=== PATIENT | female | born 1930 | race American Indian/Alaskan Native ===

== ENCOUNTER 2018-01-11 09:00 | Outpatient (CLI) | payer MEDICARE ==
--- NOTE | 2018-01-11 13:16 | Mammography Report ---
BONE DEXA:01/11/18 09:00:00 CLINICAL: Postmenopausal. COMPARISON: 04/30/14 TECHNIQUE: Two site bone DEXA performed on an Hologic scanner. FINDINGS: The average BMD of the lumbar spine L1-L4 is 0.812g/cm squared with a T-score of -2.1 and a Z-score of +0.1. This compares to 0.837g/cm squared on the last exam and represents a -3.0% change from the previous baseline. The average BMD of the left hip is 0.612g/cm squared with a T-score of -2.7 and a Z-score of -0.9. This compares to 0.654g/cm squared on the last exam and represents a -6.5% change from the previous baseline. IMPRESSION: 1. WHO classification: Osteopenia with increased fracture risk based on spine measurements. 2. WHO classification: Osteoporosis with high fracture risk based on left hip measurements. 3. A moderate decline in both spine and left hip BMD compared to the previous baseline. RECOMMENDATION: Clinical correlation and routine screening. DEFINITIONS: BMD = Bone Mineral Density T-score = BMD related to mean peak bone mass of young adult (mean expressed in Standard Deviation) Z-score = Age matched BMD expressed in SD World Health Organization (WHO) Diagnostic Criteria Normal T-score > -1 SD Osteopenia T-score between -1 and -2.4 SD Osteoporosis T-score -2.5 SD or below NOTE: BMD is not the only risk factor for fracture; also consider factors such as the patient's age, risk of falling, previous osteoporotic fracture, family history of osteoporotic fractures, current smoker, and low body weight. Z-scores are not calculated if >80 years of age.
== END 2018-01-11 09:01 | disposition home or self-care (01) ==
LOC: MAMMO 09:00
PROVIDERS: ATTEND Family Medicine
DX: Z13.820 Encounter for screening for osteoporosis (principal); M81.0 Age-related osteoporosis without current pathological fracture; M85.88 Other specified disorders of bone density and structure, other site; F17.210 Nicotine dependence, cigarettes, uncomplicated; Z78.0 Asymptomatic menopausal state; Z90.710 Acquired absence of both cervix and uterus
CPT/HCPCS: 77080